=== PATIENT | female | born 1965 | race Two or more races ===

== ENCOUNTER 2018-11-09 06:17 | Day surgery (SDC) | payer OTHER ==
[~2018-11-09 06:17] MED LIST: CANASA1000 MG/SU RC; COD LIVER OIL1 EACH PO; GLUCOTROL10 MG PO; IMODIUM PO; PROVENTIL S1 ML/5 MG IH; RECTICARE30 GM TP; ULTRACET PO; VASOTEC5 MG PO; VISTARIL25 MG PO
[2018-11-09] MEDS ORDERED: FLAGYL500MG PO (12:23)
== END 2018-11-09 13:30 | disposition home or self-care (01) ==
LOC: AMB-ENDOS 06:17 → CIR.AMB 14:30
DX: D13.1 Benign neoplasm of stomach (principal); D13.2 Benign neoplasm of duodenum; K31.89 Other diseases of stomach and duodenum; K20.8 Other esophagitis